=== PATIENT | female | born 1945 | race Caucasian/White ===

== ENCOUNTER 2018-10-08 10:04 | Day surgery (SDC) | payer MEDICARE ==
[~2018-10-08 10:04] MED LIST: AZIT250 PO; BUTASPCAFT PO; CALCA500CH PO; CHLO25B PO; CIPR500 PO; ESCI5 PO; ESTRTP PV; ETHA400 PO; FLUSAL5005 IH; METO25ER PO; MOXI400 PO; OMEP20ER PO; POTA10T PO
[2018-10-08] MEDS ORDERED: SIMV10 PO (17:01)
[2018-10-08] MEDS ORDERED: ISODIN10 (17:02)
== END 2018-10-08 17:51 | disposition home or self-care (01) ==
LOC: ATC 10:04
DX: A49.8 Other bacterial infections of unspecified site (principal)
CPT/HCPCS: 96365; J0692

== ENCOUNTER 2018-10-09 00:15 | Day surgery (SDC) | payer MEDICARE ==
[~2018-10-09 00:15] MED LIST changes: +ISODIN10; +SIMV10 PO
== END 2018-10-09 17:00 | disposition home or self-care (01) ==
LOC: ATC 00:15
DX: J47.0 Bronchiectasis with acute lower respiratory infection (principal); J15.1 Pneumonia due to Pseudomonas
CPT/HCPCS: 96365; J0692

== ENCOUNTER 2018-10-10 00:19 | Day surgery (SDC) | payer MEDICARE ==
--- NOTE | 2018-10-10 10:00 | NUR ---
COMPUTER DOWN, SEE PAPER CHARTING WELL FOR BACK UP, LATE ENTRY DONE
== END 2018-10-10 17:05 | disposition home or self-care (01) ==
LOC: ATC 00:19
DX: A49.8 Other bacterial infections of unspecified site (principal); J47.1 Bronchiectasis with (acute) exacerbation
CPT/HCPCS: 96365; J0692

== ENCOUNTER 2018-10-11 07:32 | Day surgery (SDC) | payer MEDICARE | END 2018-10-11 16:55 | disposition home or self-care (01) | LOC: ATC 07:32 | DX: J47.0 Bronchiectasis with acute lower respiratory infection (principal); J15.1 Pneumonia due to Pseudomonas | CPT/HCPCS: 96365; J0692 ==

== ENCOUNTER 2018-10-12 07:34 | Day surgery (SDC) | payer MEDICARE | END 2018-10-12 16:47 | disposition home or self-care (01) | LOC: ATC 07:34 | DX: J47.0 Bronchiectasis with acute lower respiratory infection (principal); J15.1 Pneumonia due to Pseudomonas | CPT/HCPCS: 96365; J0692 ==

== ENCOUNTER 2018-10-13 00:13 | Day surgery (SDC) | payer MEDICARE | END 2018-10-13 22:41 | disposition home or self-care (01) | LOC: ATC 00:13 | DX: A49.8 Other bacterial infections of unspecified site (principal) | CPT/HCPCS: 96365; J0692 ==

== ENCOUNTER 2018-10-14 00:19 | Day surgery (SDC) | payer MEDICARE | END 2018-10-14 22:40 | disposition home or self-care (01) | LOC: ATC 00:19 | DX: J47.1 Bronchiectasis with (acute) exacerbation (principal); B96.5 Pseudomonas (aeruginosa) (mallei) (pseudomallei) as the cause of diseases classified elsewhere | CPT/HCPCS: 96365; J0692 ==

== ENCOUNTER 2018-10-15 00:16 | Day surgery (SDC) | payer MEDICARE | END 2018-10-15 16:40 | disposition home or self-care (01) | LOC: ATC 00:16 | DX: A49.8 Other bacterial infections of unspecified site (principal) | CPT/HCPCS: 96365; J0692 ==

== ENCOUNTER 2018-10-16 00:23 | Day surgery (SDC) | payer MEDICARE | END 2018-10-16 16:25 | disposition home or self-care (01) | LOC: ATC 00:23 | DX: A49.8 Other bacterial infections of unspecified site (principal) | CPT/HCPCS: 96365; J0692 ==

== ENCOUNTER 2018-10-17 00:23 | Day surgery (SDC) | payer MEDICARE | END 2018-10-17 16:42 | disposition home or self-care (01) | LOC: ATC 00:23 | DX: A49.8 Other bacterial infections of unspecified site (principal) | CPT/HCPCS: 96365; J0692 ==

== ENCOUNTER 2018-10-18 07:53 | Day surgery (SDC) | payer MEDICARE ==
--- NOTE | 2018-10-18 15:45 | NUR ---
PT HAD FAMILY EVENT TO ATTEND, SO SHE CAME IN EARLY TO GET ANTIBIOTIC, PT WAS VERY APPRECIATED
== END 2018-10-18 22:42 | disposition home or self-care (01) ==
LOC: ATC 07:53
DX: A49.8 Other bacterial infections of unspecified site (principal)
CPT/HCPCS: 96365; J0692

== ENCOUNTER 2018-10-19 07:58 | Day surgery (SDC) | payer MEDICARE | END 2018-10-19 15:10 | disposition home or self-care (01) | LOC: ATC 07:58 | DX: A49.8 Other bacterial infections of unspecified site (principal) | CPT/HCPCS: 96365; J0692 ==

== ENCOUNTER 2018-10-20 00:06 | Day surgery (SDC) | payer MEDICARE ==
[2018-10-21] MEDS ORDERED: CEFEPIME HCL IV (08:10)
== END 2018-10-20 16:40 | disposition home or self-care (01) ==
LOC: ATC 00:06
DX: A49.8 Other bacterial infections of unspecified site (principal)
CPT/HCPCS: 96365; J0692

== ENCOUNTER 2018-10-21 00:03 | Day surgery (SDC) | payer MEDICARE ==
[2018-10-21] MEDS ORDERED: CEFEPIME HCL IV (08:10)
== END 2018-10-21 15:35 | disposition home or self-care (01) ==
LOC: ATC 00:03
DX: J47.1 Bronchiectasis with (acute) exacerbation (principal); Z45.2 Encounter for adjustment and management of vascular access device
CPT/HCPCS: 96365; J0692

== ENCOUNTER 2018-10-22 00:35 | Day surgery (SDC) | payer MEDICARE ==
[~2018-10-22 00:35] MED LIST changes: +CEFEPIME HCL IV
--- NOTE | 2018-10-22 08:10 | NUR ---
LAB DRAWN FROM Josefina CHAUHAN
[2018-10-22 08:19] LABS: BASOPHILS ABSOLUTE AUTO 0.08 K/mm3 (0.00-0.23); BASOPHILS PERCENT AUTO 2 % (0-2); EOSINOPHILS ABSOLUTE AUTO 0.51 K/mm3 (0.00-0.68); EOSINOPHILS PERCENT AUTO 9 % (0-6); Hematocrit 36.9 % (33.0-51.0); Hemoglobin 12.1 g/dL (11.5-16.0); IMMATURE GRAN ABSOLUTE AUTO 0.01 K/mm3 (0.00-0.10); IMMATURE GRAN PERCENT AUTO 0 % (0-1); LYMPHOCYTES ABSOLUTE AUTO 2.58 K/mm3 (0.84-5.20); LYMPHOCYTES PERCENT AUTO 47 % (21-46); MONOCYTES ABSOLUTE AUTO 0.38 K/mm3 (0.16-1.47); MONOCYTES PERCENT AUTO 7 % (4-13); Mean Corpuscular HGB 28.5 pg (26.0-34.0); Mean Corpuscular HGB Conc 32.8 g/dL (31.5-36.5); Mean Corpuscular Volume 87 fL (80-100); Mean Platelet Volume 10.7 fL (9.1-12.4); NEUTROPHILS ABSOLUTE AUTO 1.92 K/mm3 (1.96-9.15); NEUTROPHILS PERCENT AUTO 35 % (41-73); Platelet Count 248 K/mm3 (150-400); RDW Coefficient Variation 13.9 % (11.7-14.2); RDW Standard Deviation 44.5 fL (35.1-46.3); Red Blood Cell Count 4.24 M/mm3 (3.80-5.20); White Blood Cell Count 5.48 K/mm3 (4.00-11.30)
[2018-10-22 08:44] LABS: Alanine Aminotransfer (ALT/SGP 23 U/L (12-78); Albumin, Blood 3.5 g/dL (3.4-5.0); Albumin/Globulin Ratio 0.9 (0.8-1.8); Alk Phos 62 U/L (50-136); Anion Gap 6 mmol/L (6-16); Aspartate Aminotrans (AST/SGOT 19 U/L (12-37); Bilirubin, Total 0.6 mg/dL (0.1-1.0); Blood Urea Nitrogen 13 mg/dL (8-24); CHOL/HDL RATIO 3.3; CO2, Blood 26 mmol/L (21-32); Chloride, Blood 109 mmol/L (98-108); Cholesterol 176 mg/dL (50-200); Creatinine, Blood 0.59 mg/dL (0.40-1.00); Free Thyroxine 1.08 ng/dL (0.70-1.60); Glomerular Filtration Rate >60 (60-); Glucose, Blood 90 mg/dL (70-99); HDL Cholesterol 53 mg/dL (>39); Low Density Lipoprotein Chol 104 mg/dL (0-110); Potassium, Blood 3.6 mmol/L (3.5-5.5); Sodium, Blood 141 mmol/L (136-145); Thyroxine (T4) 10.4 ug/dL (4.8-13.9); Total Protein, Blood 7.5 g/dL (6.4-8.2); Triglycerides 96 mg/dL (30-160); Very Low Density Lipoprot Chol 19 mg/dL (6-32)
== END 2018-10-22 08:31 | disposition home or self-care (01) ==
LOC: ATC 00:35
PROVIDERS: Internal Medicine
DX: A49.8 Other bacterial infections of unspecified site (principal); E87.2 Acidosis; I10 Essential (primary) hypertension; E55.9 Vitamin D deficiency, unspecified
CPT/HCPCS: 80053; 80061; 82306; 84436; 84439; 84443; 85025; 96365; J0692

== ENCOUNTER → 2019-11-16 | Outpatient (CLI) | payer MEDICARE ==
[2019-12-11 10:03] LABS: Performing Lab LCA; Test Name ORG ID MALDI
== END | disposition home or self-care (01) ==
LOC: LAB SHORT 12:30 → LAB 12:30 → LAB FUT 14:09 → LAB SHORT 14:09 → LAB FUT 11-15 11:25 → EDSTATUS 11-15 11:25
PROVIDERS: Internal Medicine Infectious Disease
DX: J47.1 Bronchiectasis with (acute) exacerbation (principal)
CPT/HCPCS: 87070; 87077; 87186; 87205

== ENCOUNTER → 2021-04-06 | Outpatient (CLI) | payer MEDICARE | LOC: LAB SHORT 14:39 → LAB 14:39 | DX: J47.1 Bronchiectasis with (acute) exacerbation (principal); Z22.39 Carrier of other specified bacterial diseases; Z88.8 Allergy status to other drugs, medicaments and biological substances | CPT/HCPCS: 87070; 87205 ==